=== PATIENT | female | born 2000 | race African-American/Black ===

== ENCOUNTER 2020-12-28 01:47 | Inpatient (IN) ==
[2020-12-28] MEDS ORDERED: MEPERIDINE 50 MG/1 ML VIAL IV PRN (02:34)
[2020-12-28] MEDS ORDERED: BUTORPHANOL 2 MG/ML VIAL IV PRN (02:34)
[2020-12-28] MEDS ORDERED: ONDANSETRON 4 MG/2 ML VIAL IV PRN (02:34)
[2020-12-28 03:07] LABS: Basophils % 0.1 % (0.0-0.8); Eosinophils # 0.2 10*3/uL (0.0-0.87); Eosinophils % 1.6 % (0.00-10.9); Hematocrit 35.7 VOL% (35.7-47.0); Hemoglobin 11.4 GM/DL (12.0-16.0); Immature Granulocytes % 0.7 %; Lymphocytes # 3.4 10*3/uL (1.4-4.0); Lymphocytes % 22.5 % (21.3-54.2); Mean Corpuscular HGB Conc 31.9 GM/DL (32-36); Mean Corpuscular Volume 87.7 FL (87-102); Mean Platelet Volume 10.4 FL (9.6-12.0); Monocytes % 5.9 % (1.7-12.7); Neutrophils % 69.2 % (38.7-73.9); Platelet Count 321 T/CUMM (130-400); Red Blood Count 4.07 MC/CUMM (3.8-5.5); Red Cell Distribution Width 15.9 % (9.3-17.3); White Blood Count 15.2 T/CUMM (4-12)
[2020-12-28 03:13] LABS: Alanine Aminotransferase 14 U/L (13-56); Albumin 2.4 G/DL (3.4-5.0); Alkaline Phosphatase 182 U/L (45-117); Aspartate Amino Transferase 13 U/L (0-37); Bilirubin,Total < 0.39 MG/DL (0.20-1.00); Blood Urea Nitrogen 8 MG/DL (7-18); Calcium 9.4 MG/DL (8.5-10.1); Carbon Dioxide 23 MMOL/L (21-32); Estimated Glom Filtration Rate 200 ML/MIN; Glucose 95 MG/DL (74-106); Osmolality,Calculated 272.7 MOS/KG (273-304); Potassium 3.5 MMOL/L (3.5-5.1); Sodium 138 MMOL/L (136-145); Total Protein 7.7 G/DL (6.4-8.2)
[2020-12-28] MEDS ORDERED: OXYTOCIN/LR 20 UNIT/1,000 ML BAG IV SCH (05:00)
[2020-12-28] MEDS: LACTATED RINGERS 1,000 ML IV SCH ×2 (05:19→14:55)
[2020-12-28] MEDS ORDERED: CITRIC ACID/SODIUM CITRATE 30 ML UDCUP PO ONE (08:53)
[2020-12-28] MEDS ORDERED: ePHEDrine 50 MG/ML VIAL IV PRN (08:53)
[2020-12-28] MEDS ORDERED: LACTATED RINGERS 1,000 ML IV ONE (08:53)
[2020-12-28] MEDS ORDERED: FAMOTIDINE 20 MG/2 ML VIAL IV ONE (08:53)
[2020-12-28] MEDS ORDERED: diphenhydrAMINE 50 MG/1 ML VIAL IV PRN ×2 (08:54)
[2020-12-28] MEDS ORDERED: PROMETHAZINE 25 MG/1 ML VIAL IM ONE (08:54)
[2020-12-28] MEDS ORDERED: NALOXONE 0.4 MG/ML VIAL IV PRN (08:54)
[2020-12-28] MEDS ORDERED: hydrOXYzine HCL 25 MG/1 ML VIAL IM PRN (08:54)
[2020-12-28] MEDS ORDERED: LACTATED RINGERS 1,000 ML IV SCH (09:00)
[2020-12-28] MEDS: fentaNYL 2 MCG/ROPIV 0.2% EPID 100 ML EPIDURAL SCH ×2 (09:58→18:18)
[2020-12-28 11:06] LABS: Bilirubin,Urine Negative (Negative); Blood, Urine Negative (Negative); Glucose,Urine (UA) Negative (Negative); Ketones,Urine Negative (Negative); Mucus,Urine Occasional /LPF (Occasional); Nitrite,Urine Negative (Negative); Protein,Urine Negative; RBC,Urine <1 /HPF (0-4); Squamous Epithelial Cell,Urine Occasional /HPF (0-10); Urine Appearance CLEAR (Clear); Urine Color Yellow (Yellow)
[2020-12-28] MEDS ORDERED: AMPICILLIN INJ 2,000 MG in SODIUM CHLORIDE 0.9% 100 ML IV ONE (15:04)
[2020-12-28] MEDS ORDERED: AMPICILLIN INJ 1,000 MG in SODIUM CHLORIDE 0.9% 100 ML IV SCH (19:00)
[2020-12-28] MEDS: AMPICILLIN INJ 2,000 MG in SODIUM CHLORIDE 0.9% 100 ML IV SCH (21:11)
[2020-12-29 01:42] LABS: Bilirubin,Urine Negative (Negative); Blood, Urine Negative (Negative); Glucose,Urine (UA) Negative (Negative); Ketones,Urine Negative (Negative); Nitrite,Urine Negative (Negative); Protein,Urine Negative; RBC,Urine <1 /HPF (0-4); Squamous Epithelial Cell,Urine Occasional /HPF (0-10); Urine Appearance Slightly Hazy (Clear); Urine Color Straw (Yellow); Urine Specific Gravity 1.001 (1.001-1.035); Urine Urobilinogen < 2.0 EU/DL (0.2-1.0)
[2020-12-29] MEDS ORDERED: CARBOPROST TROMETHAMINE 250 MCG/ML AMP IM ONE (01:57)
[2020-12-29] MEDS ORDERED: miSOPROStoL 200 MCG TABLET VAG ONE (01:57)
[2020-12-29] MEDS ORDERED: METHYLERGONOVINE 0.2 MG/1 ML AMP IM ONE (01:57)
[2020-12-29] MEDS: AMPICILLIN INJ 2,000 MG in SODIUM CHLORIDE 0.9% 100 ML IV SCH (03:38)
[2020-12-29] MEDS: LACTATED RINGERS 1,000 ML IV SCH (03:38)
[2020-12-29] MEDS: fentaNYL 2 MCG/ROPIV 0.2% EPID 100 ML EPIDURAL SCH (03:42)
[2020-12-29] MEDS ORDERED: BENZOCAINE 20%/MENTHOL 0.5% SPRAY 56 GM CAN TOP PRN (04:35)
[2020-12-29] MEDS ORDERED: RHO(D) IMMUNE GLOBULIN 300 MCG SYRINGE IM ONE (04:35)
[2020-12-29] MEDS ORDERED: ACETAMINOPHEN 325 MG TABLET PO PRN (04:35)
[2020-12-29] MEDS ORDERED: OXYTOCIN/LR 20 UNIT/1,000 ML BAG IV ONE (04:35)
[2020-12-29] MEDS ORDERED: LANOLIN 50% CREAM 0.3 OZ TUBE TOP PRN (04:35)
[2020-12-29] MEDS ORDERED: ONDANSETRON 4 MG/2 ML VIAL IV PRN (04:35)
[2020-12-29] MEDS ORDERED: BISACODYL 10 MG SUPP RECTAL PRN (04:35)
[2020-12-29] MEDS ORDERED: WITCH HAZEL PADS 100/JAR TOP PRN (04:35)
[2020-12-29] MEDS ORDERED: oxyCODONE/ACETAMINOPHEN 5-325 MG TABLET PO PRN ×2 (04:35)
[2020-12-29] MEDS ORDERED: HYDROCORTISONE 2.5% RECTAL CREAM 30 GM TUBE TOP PRN (04:35)
[2020-12-29] MEDS ORDERED: DIPH/TET/ACEL PERT BOOSTER VACCINE 0.5 ML VIAL IM ONE (04:35)
[2020-12-29] MEDS ORDERED: MEASLES/MUMPS/RUBELLA VACCINE 0.5 ML VIAL SUBCUT ONE (04:35)
[2020-12-29 04:36] LABS: Cord Arterial Blood HCO3 20.9 MMOL/L
[2020-12-29 04:39] LABS: Cord Venous Blood HCO3 22.7 MMOL/L; Cord Venous Blood PCO2 48.6 MMHG; Cord Venous Blood PO2 23.3
[2020-12-29] MEDS: DOCUSATE SODIUM 100 MG CAPSULE PO SCH ×2 (09:04→19:45)
[2020-12-29] MEDS: IBUPROFEN 800 MG TABLET PO PRN (19:45)
[2020-12-30] MEDS: IBUPROFEN 800 MG TABLET PO PRN (03:28)
[2020-12-30 05:48] LABS: Basophils % 0.3 % (0.0-0.8); Eosinophils # 0.3 10*3/uL (0.0-0.87); Eosinophils % 1.8 % (0.00-10.9); Hematocrit 32.9 VOL% (35.7-47.0); Hemoglobin 10.5 GM/DL (12.0-16.0); Immature Granulocytes % 0.6 %; Immature Granulocytes Absolute 0.09 #; Lymphocytes # 5.1 10*3/uL (1.4-4.0); Lymphocytes % 33.9 % (21.3-54.2); Mean Corpuscular HGB Conc 31.9 GM/DL (32-36); Mean Platelet Volume 10.5 FL (9.6-12.0); Neutrophils % 57.4 % (38.7-73.9); Platelet Count 319 T/CUMM (130-400); Red Blood Count 3.74 MC/CUMM (3.8-5.5); Red Cell Distribution Width 16.4 % (9.3-17.3); White Blood Count 14.9 T/CUMM (4-12)
[2020-12-30 06:20] LABS: Hypochromasia 1+; Microcytosis 1+; Ovalocytes Slight; Platelet Estimate Normal
[2020-12-30] MEDS: DOCUSATE SODIUM 100 MG CAPSULE PO SCH (08:54)
[2020-12-30 15:22] VITALS: BP 129/61
== END 2020-12-30 17:10 | disposition home or self-care (01) | DRG 560 ==
LOC: N.LD 01:47 → N.OB 12-29 08:39
PROVIDERS: ADMIT Obstetrics & Gynecology; ATTEND Obstetrics & Gynecology

== ENCOUNTER 2022-04-13 03:43 | Inpatient (IN) ==
[2022-04-13] MEDS ORDERED: miSOPROStoL 200 MCG TABLET RECTAL PRN (04:01)
[2022-04-13] MEDS ORDERED: OXYTOCIN/LR 20 UNIT/1,000 ML BAG IV ONE ×2 (04:01→15:43)
[2022-04-13] MEDS ORDERED: CARBOPROST TROMETHAMINE 250 MCG/ML AMP IM PRN (04:01)
[2022-04-13] MEDS ORDERED: TRANEXAMIC ACID 1,000 MG in SODIUM CHLORIDE 0.9% 100 ML IV PRN (04:01)
[2022-04-13] MEDS ORDERED: MEPERIDINE 50 MG/1 ML VIAL IV PRN (04:01)
[2022-04-13] MEDS ORDERED: BUTORPHANOL 2 MG/ML VIAL IV PRN (04:01)
[2022-04-13] MEDS ORDERED: ACETAMINOPHEN 325 MG TABLET PO PRN ×2 (04:01→15:43)
[2022-04-13] MEDS ORDERED: ONDANSETRON 4 MG/2 ML VIAL IV PRN (04:01)
[2022-04-13] MEDS ORDERED: METHYLERGONOVINE 0.2 MG/1 ML AMP IM PRN (04:01)
[2022-04-13] MEDS ORDERED: OXYTOCIN/LR 20 UNIT/1,000 ML BAG IV SCH ×2 (04:30→09:00)
[2022-04-13] MEDS ORDERED: LACTATED RINGERS 1,000 ML IV SCH (04:30)
[2022-04-13 04:58] LABS: Basophils % 0.3 % (0.0-0.8); Eosinophils # 0.3 10*3/uL (0.0-0.87); Eosinophils % 1.9 % (0.00-10.9); Hematocrit 32.1 VOL% (35.7-47.0); Hemoglobin 10.3 GM/DL (12.0-16.0); Immature Granulocytes % 0.6 %; Lymphocytes # 3.2 10*3/uL (1.4-4.0); Lymphocytes % 20.7 % (21.3-54.2); Mean Corpuscular HGB Conc 32.1 GM/DL (32-36); Mean Corpuscular Volume 84.9 FL (87-102); Mean Platelet Volume 9.8 FL (9.6-12.0); Monocytes % 6.4 % (1.7-12.7); Neutrophils % 70.1 % (38.7-73.9); Platelet Count 355 T/CUMM (130-400); Red Blood Count 3.78 MC/CUMM (3.8-5.5); White Blood Count 15.4 T/CUMM (4-12)
[2022-04-13 05:29] LABS: Alanine Aminotransferase 11 U/L (13-56); Albumin 2.3 G/DL (3.4-5.0); Alkaline Phosphatase 144 U/L (45-117); Aspartate Amino Transferase 8 U/L (0-37); Bilirubin,Total < 0.39 MG/DL (0.20-1.00); Blood Urea Nitrogen 8 MG/DL (7-18); Calcium 9.2 MG/DL (8.5-10.1); Carbon Dioxide 23 MMOL/L (21-32); Chloride 108 MMOL/L (98-107); Glucose 90 MG/DL (74-106); Osmolality,Calculated 274.5 MOS/KG (273-304); Potassium 3.8 MMOL/L (3.5-5.1); Sodium 139 MMOL/L (136-145); Total Protein 7.5 G/DL (6.4-8.2)
[2022-04-13] MEDS ORDERED: LACTATED RINGERS 1,000 ML IV ONE (08:36)
[2022-04-13] MEDS ORDERED: NALOXONE 0.4 MG/ML VIAL IV PRN (08:36)
[2022-04-13] MEDS ORDERED: ePHEDrine 50 MG/ML VIAL IV PRN (08:36)
[2022-04-13] MEDS ORDERED: FAMOTIDINE 20 MG/2 ML VIAL IV ONE (08:36)
[2022-04-13] MEDS ORDERED: hydrOXYzine HCL 25 MG/1 ML VIAL IM PRN (08:36)
[2022-04-13] MEDS ORDERED: PROMETHAZINE 25 MG/1 ML VIAL IM ONE (08:36)
[2022-04-13] MEDS ORDERED: diphenhydrAMINE 50 MG/1 ML VIAL IV PRN ×2 (08:36)
[2022-04-13] MEDS ORDERED: CITRIC ACID/SODIUM CITRATE 30 ML UDCUP PO ONE (08:36)
[2022-04-13] MEDS ORDERED: fentaNYL 2 MCG/ROPIV 0.2% EPID 100 ML EPIDURAL SCH (09:00)
[2022-04-13] MEDS ORDERED: miSOPROStoL 200 MCG TABLET ONE (11:45)
[2022-04-13] MEDS ORDERED: TRANEXAMIC ACID 1,000 MG/10 ML VIAL ONE (11:45)
[2022-04-13] MEDS ORDERED: METHYLERGONOVINE 0.2 MG/1 ML AMP ONE (11:46)
[2022-04-13] MEDS ORDERED: CARBOPROST TROMETHAMINE 250 MCG/ML AMP IM ONE (11:46)
[2022-04-13 12:14] LABS: Glucose,Urine (UA) Negative (Negative); Ketones,Urine Negative (Negative); Mucus,Urine Few /LPF (Occasional); Nitrite,Urine Negative (Negative); Protein,Urine Negative (Negative); RBC,Urine 1 /HPF (0-4); Urine Appearance Clear (Clear); Urine Color Yellow (Yellow); Urine Specific Gravity 1.025 (1.001-1.035); Urine pH 7.5 (4.5-8.0)
[2022-04-13 12:15] LABS: Bilirubin,Urine Negative (Negative); Blood, Urine Trace mg/dL (Negative)
[2022-04-13 13:20] LABS: Cord Arterial Blood HCO3 22.5 MMOL/L
[2022-04-13 13:22] LABS: Cord Venous Blood HCO3 24.2 MMOL/L; Cord Venous Blood PCO2 46.3 MMHG; Cord Venous Blood PO2 38.7
[2022-04-13] MEDS ORDERED: WITCH HAZEL PADS 100/JAR TOP PRN (15:43)
[2022-04-13] MEDS ORDERED: LANOLIN 50% CREAM 0.3 OZ TUBE TOP PRN (15:43)
[2022-04-13] MEDS ORDERED: BENZOCAINE 20%/MENTHOL 0.5% SPRAY 56 GM CAN TOP PRN (15:43)
[2022-04-13] MEDS ORDERED: DIPH/TET/ACEL PERT BOOSTER VACCINE 0.5 ML VIAL IM ONE (15:43)
[2022-04-13] MEDS ORDERED: HYDROCORTISONE 2.5% RECTAL CREAM 30 GM TUBE TOP PRN (15:43)
[2022-04-13] MEDS ORDERED: oxyCODONE/ACETAMINOPHEN 5-325 MG TABLET PO PRN (15:43)
[2022-04-13] MEDS ORDERED: RHO(D) IMMUNE GLOBULIN 300 MCG SYRINGE IM ONE (15:43)
[2022-04-13] MEDS ORDERED: BISACODYL 10 MG SUPP RECTAL PRN (15:43)
[2022-04-13] MEDS ORDERED: MEASLES/MUMPS/RUBELLA VACCINE 0.5 ML VIAL SUBCUT ONE (15:43)
[2022-04-13] MEDS: IBUPROFEN 800 MG TABLET PO PRN (19:43)
[2022-04-13] MEDS: DOCUSATE SODIUM 100 MG CAPSULE PO SCH (21:07)
[2022-04-14] MEDS: IBUPROFEN 800 MG TABLET PO PRN (03:53)
[2022-04-14 06:24] LABS: Basophils % 0.3 % (0.0-0.8); Eosinophils # 0.2 10*3/uL (0.0-0.87); Eosinophils % 1.5 % (0.00-10.9); Hematocrit 32.5 VOL% (35.7-47.0); Hemoglobin 10.2 GM/DL (12.0-16.0); Immature Granulocytes % 0.6 %; Immature Granulocytes Absolute 0.09 #; Lymphocytes # 3.9 10*3/uL (1.4-4.0); Lymphocytes % 25.7 % (21.3-54.2); Mean Corpuscular HGB Conc 31.4 GM/DL (32-36); Mean Corpuscular Volume 86.4 FL (87-102); Mean Platelet Volume 10.3 FL (9.6-12.0); Monocytes # 0.8 10*3/uL (0.11-0.8); Monocytes % 5.5 % (1.7-12.7); Neutrophils % 66.4 % (38.7-73.9); Platelet Count 353 T/CUMM (130-400); Red Blood Count 3.76 MC/CUMM (3.8-5.5); Red Cell Distribution Width 16.3 % (9.3-17.3); White Blood Count 15.1 T/CUMM (4-12)
[2022-04-14] MEDS: DOCUSATE SODIUM 100 MG CAPSULE PO SCH ×2 (07:27→08:08)
[2022-04-14] MEDS: oxyCODONE/ACETAMINOPHEN 5-325 MG TABLET PO PRN ×3 (07:28→20:27)
[2022-04-15] MEDS: DOCUSATE SODIUM 100 MG CAPSULE PO SCH (06:38)
[2022-04-15] MEDS: oxyCODONE/ACETAMINOPHEN 5-325 MG TABLET PO PRN (07:13)
[2022-04-15 11:52] VITALS: BP 112/62
== END 2022-04-15 13:30 | disposition home or self-care (01) | DRG 560 ==
LOC: N.LD 03:43 → N.OB 15:22
PROVIDERS: ADMIT Obstetrics & Gynecology; ATTEND Obstetrics & Gynecology